=== PATIENT | male | born 1970 | race Caucasian/White ===

== ENCOUNTER 2017-05-30 12:31 | Emergency (ER) | payer OTHER ==
[2017-05-30 13:59] VITALS: BP 110/60
--- NOTE | 2017-05-30 15:37 | UC ---
Skin Complaint HPI - HPI Summary HPI Summary: pt presents with 2 red area on left anterior chest wall. Pt states started like "zits" wounds have become for painful and red ring expanding. Pt states this am picked both and + purulent discharge. Pt thinks may have had fever yesterday. Pt with personal dx of MRSA but significant other with h/o MRSA. Pt tdap UTD pt does have hep C - not on anti-viral Pt's medications reviewed this visit - History of Current Complaint Chief Complaint: UCSkin Time Seen by Provider: 05/30/17 15:10 Stated Complaint: SKIN COMPLAINT Hx Obtained From: Patient, Family/Operations Clerk Onset/Duration: Gradual Onset, Lasting Days Skin Exposure Onset/Duration: Days Ago Timing: Constant Onset Severity: Mild Current Severity: Moderate Pain Intensity: 7 Pain Scale Used: 0-10 Numeric Location: Discrete Aggravating Factor(s): Touch Alleviating Factor(s): Nothing Associated Signs & Symptoms: Positive: Fever. Negative: Nausea, Vomiting - Allergy/Home Medications Allergies/Adverse Reactions: Allergies Allergy/AdvReac Type Severity Reaction Status Date / Time No Known Allergies Allergy Verified 05/30/17 13:52 Review of Systems Constitutional: Fever - tactile Skin: Other - left anterior chest wall wound x 2 All Other Systems Reviewed And Are Negative: Yes PMH/Surg Hx/FS Hx/Imm Hx Previously Healthy: Yes - Surgical History Surgical History: None Surgery Procedure, Year, and Place: [facility] surgery - Social History Occupation: Employed Full-time Lives: With Family Alcohol Use: Occasionally Substance Use Type: None Smoking Status (MU): Heavy Every Day Tobacco Smoker Type: Cigarettes Amount Used/How Often: 20-30 pd Physical Exam Triage Information Reviewed: Yes Appearance: Well-Appearing, No Pain Distress, Well-Nourished Vital Signs: Initial Vital Signs Temp 99 F 05/30/17 13:49 Pulse 60 05/30/17 13:49 Resp 16 05/30/17 13:49 BP 110/60 05/30/17 13:49 Pulse Ox 98 05/30/17 13:49 Eyes: Positive: Conjunctiva Clear ENT: Positive: Hearing grossly normal Neck: Positive: Supple Respiratory: Positive: No respiratory distress, No accessory muscle use Musculoskeletal Exam: Normal Musculoskeletal: Positive: Strength Intact Neurological Exam: Normal Neurological: Positive: Alert Psychological Exam: Normal Skin: Positive: Other - left anterior chest wall -several small inflammed follicles. Pt with 2 area of cellulitis - one 2x3cm with central scab, one 1x1cm with central scab. mild warmth, well demaracted no fluctuance, no odor Course/Dx - Course Course Of Treatment: pt with 2 areas of cellulitis left anterior chest wall. wounds demarcated by me. small purulunt discharge expressed from superior, larger wound - culture taken. covered with abx ointment and bandage. Rx doxy. heat. soaks. return precautions. pt comfortable and in agreement with plan - Diagnoses Provider Diagnoses: cellulitis, likely MRSA wound Discharge - Discharge Plan Condition: Stable Disposition: HOME Prescriptions: DOXYcycline CAP(*) [DOXYcycline 100MG CAP(*)] 100 mg PO BID #20 cap Patient Education Materials: MRSA (Methicillin-Resistant Staphylococcus Aureus ) (ED), Cellulitis (ED), Abscess (ED) Referrals: Jim Eric MD [Primary Care Provider] - Additional Instructions: - Take antibiotics as prescribed until gone - cover wound with sloppy wet, warm cloth 2 times a day for 15 minut - monitor your wound for increased reddness or swelling. please not the red [place] may increase for the first 24-36 hours while the antibiotics start to work - pus from your wound has been sent to the lab for testing, if you need a different antibiotics, you will received a call from a care warehouse team leader - Contact your doctor to schedule a follow-up appointment or return with any questions or concerns
--- NOTE | 2017-06-01 07:06 | UC ---
- Progress Note Progress Note: please call the pt. with the wound culture results + MRSA , cont. with current antibiotics follow up for wound check in 3 days
== END 2017-05-30 15:37 | disposition home or self-care (01) ==
LOC: UCCORT 12:31
DX: L03.313 Cellulitis of chest wall (principal); B95.62 Methicillin resistant Staphylococcus aureus infection as the cause of diseases classified elsewhere; Z86.14 Personal history of Methicillin resistant Staphylococcus aureus infection; F17.210 Nicotine dependence, cigarettes, uncomplicated
CPT/HCPCS: 87070; 87077; 87186; 87205; 87640; 87641; 99212; G0463

== ENCOUNTER 2024-03-28 12:41 | Inpatient (IN) ==
[2024-03-28] MEDS: Lactated Ringers SEPSIS* BAG 2,180 ML IV ONE (13:45)
[2024-03-28 13:46] LABS: ABS Basophils 0.1 10^3/uL (0.0-0.1); ABS Eosinophils 0.2 10^3/uL (0.0-0.5); ABS Lymphocytes 1.6 10^3/uL (1.0-4.8); ABS Monocytes 0.6 10^3/uL (0.0-1.1); ABS Neutrophils 6.9 10^3/uL (1.5-7.6); ABS Nucleated RBC 0.01 10^3/ul; Eosinophil % 2.4 %; Hematocrit 36.3 % (38-53); Hemoglobin 12.4 g/dL (13.2-16.3); Lymphocyte % 17.4 %; Mean Corpuscular Hemoglobin 29.3 pg (27-33); Mean Corpuscular Hgb Conc 34.3 g/dL (31-36); Mean Corpuscular Volume 85.4 fL (80-97); Mean Platelet Volume 6.4 fL (7.5-11.2); Nucleated Red Blood Cells % 0.1 %/100WBC (0.0-0.8); Platelet Count 608 10^3/uL (150-450); Red Blood Count 4.25 10^6/uL (4.06-5.63); White Blood Count 9.5 10^3/uL (3.6-10.2)
[2024-03-28 13:56] LABS: INR 1.22 (0.85-1.14)
[2024-03-28] MEDS ORDERED: Vancomycin 1,000 MG in NS 0.9% 250 ml 250 ML IVPB SCH (14:00)
[2024-03-28 14:10] LABS: High Sens Troponin Baseline 7 pg/mL (<20)
[2024-03-28 14:26] LABS: ALT 54 U/L (7-52); Albumin 2.6 g/dL (3.2-5.2); Albumin/Globulin Ratio 0.7 (1-3); Alkaline Phosphatase 59 U/L (35-149); Anion Gap 5 mmol/L (2-16); Blood Urea Nitrogen 12 mg/dL (6-24); CO2 Carbon Dioxide 29 mmol/L (22-32); Calcium 7.8 mg/dL (8.6-10.3); Chloride 96 mmol/L (101-111); Creatinine, Serum 0.78 mg/dL (0.67-1.17); Globulin 3.9 g/dL (2-4); Glucose 141 mg/dL (70-100); Sodium 130 mmol/L (135-145); Total Bilirubin 0.5 mg/dL (0.2-1.0); Total Protein 6.5 g/dL (6.4-8.9); eGFR CKD-EPI 107.3 (>60)
[2024-03-28] MEDS: Piperacillin/Tazobac 3.375 BAG 3.375 GM/100 ML BAG IV ONE (14:52)
[2024-03-28 14:59] LABS: Venous Bicarbonate HCO3 25.5 mmol/L (24-28)
[2024-03-28 15:27] LABS: High Sensitivity Troponin 1 Hr 6 pg/mL (<20)
[2024-03-28] MEDS: Vancomycin 1,000 MG - ED ONCE IVPB ONE (15:34)
[2024-03-28] MEDS: Iohexol 350 (CONTRAST) 500 ML MDV IV ONE (15:39)
[2024-03-28 15:41] LABS: AST Redraw 49 U/L (13-39); Potassium Redraw 4.5 mmol/L (3.5-5.0)
[2024-03-28 17:47] LABS: Urine Appearance Clear; Urine Bilirubin Negative (Negative); Urine Blood Negative (Negative); Urine Color Colorless; Urine Glucose Negative (Negative); Urine Ketones Negative (Negative); Urine Nitrite Negative (Negative); Urine Protein Negative (Negative); Urine Specific Gravity 1.022 (1.002-1.030); Urine Urobilinogen Negative (Negative); Urine pH 6.5 (5.0-8.0)
[2024-03-28] MEDS ORDERED: Zosyn per Pharmacy NOTE FOLLOW UP SCH (19:00)
[2024-03-28] MEDS ORDERED: Vancomycin per Pharmacy 1 EA NOTE FOLLOW UP SCH (19:00)
[2024-03-28] MEDS ORDERED: Nicotine GUM 4MG FRUIT FLAVOR PO PRN (19:23)
[2024-03-28] MEDS: Lactated Ringers 1000 ml BAG 1,000 ML IV ONE (19:26)
[2024-03-28] MEDS ORDERED: Sulfur Hexaflouride MICROSPHR 25 MG VIAL IV PRN (19:36)
[2024-03-28 20:49] LABS: % Iron Saturation 11 % (15-55); .Transferrin 136 mg/dL (203-362); Iron < 20 ug/dL (50-212); Total Iron Binding Capacity 190 mcg/dL (250-450); Unsaturated Iron Binding 170 ug/dL
[2024-03-28 21:11] LABS: Ferritin 173.4 ng/mL (24-336)
[2024-03-28 21:14] LABS: Folate 7.96 ng/mL (5.90-24.80)
[2024-03-28 21:15] LABS: Vitamin B12 967 pg/mL (180-914)
[2024-03-28 21:37] LABS: Urine Benzodiazepine Screen None Detected (None Detect); Urine Cannabinoids Screen None Detected (None Detect); Urine Opiates Screen Presumptive Positive (None Detect)
[2024-03-28 21:40] LABS: TSH Ultra Thyroid Stim Horm 1.64 mcIU/mL (0.34-5.60)
[2024-03-28 21:42] LABS: Free T4 1.24 ng/dL (0.61-1.12)
[2024-03-28] MEDS ORDERED: ZOSYN 3.375 GM x ONE DOSE over 30 miuntes IV (22:00)
[2024-03-28] MEDS: Vancomycin 1000 MG in NS 0.9% 250 ML IVPB SCH (23:03)
[2024-03-29] MEDS: ZOSYN 3.375 GM x ONE DOSE over 30 miuntes IV (02:14)
[2024-03-29 02:32] LABS: Hepatitis C Antibody Reactive (Negative)
[2024-03-29] MEDS: ZOSYN 3.375 GM Q8H per EXTENDED INFUSION IV SCH (05:05)
[2024-03-29] MEDS: Vancomycin 1000 MG in NS 0.9% 250 ML IVPB SCH (06:11)
[2024-03-29 06:43] LABS: Albumin 2.3 g/dL (3.2-5.2); Albumin/Globulin Ratio 0.7 (1-3); C Reactive Protein 100.83 mg/L (<8.01); Calcium 7.5 mg/dL (8.6-10.3); Creatinine, Serum 0.65 mg/dL (0.67-1.17); Globulin 3.1 g/dL (2-4); Magnesium 1.8 mg/dL (1.9-2.7); Phosphorus 3.7 mg/dL (2.5-5.0); Potassium 5.2 mmol/L (3.5-5.0); Total Bilirubin 0.3 mg/dL (0.2-1.0); Total Protein 5.4 g/dL (6.4-8.9); eGFR CKD-EPI 113.4 (>60)
[2024-03-29 08:23] LABS: Corrected Retic Count 0.8 % (0.5-1.5); Hematocrit 38.7 % (38-53); Hematocrit for Retic CNT 38.7 % (38-53); Hemoglobin 13.1 g/dL (13.2-16.3); Immature Retic Fraction 0.45; Mean Corpuscular Hemoglobin 29.1 pg (27-33); Mean Corpuscular Volume 85.6 fL (80-97); Mean Platelet Volume 5.8 fL (7.5-11.2); Platelet Count 551 10^3/uL (150-450); RBC Retic Count 4.52 10^6/ul (4.06-5.63); Red Blood Count 4.52 10^6/uL (4.06-5.63); Red Cell Distribution Width 14.9 % (12-17); White Blood Count 8.2 10^3/uL (3.6-10.2)
[2024-03-29] MEDS: Magnesium Sulfate 2 gm BAG 2 GM/50 ML BAG IVPB ONE (08:28)
[2024-03-29] MEDS: Methadone ORALSYR CONC LIQ 10 MG/ML PO SCH (09:07)
[2024-03-29 09:16] LABS: ABS Basophils 0.1 10^3/uL (0.0-0.1); ABS Eosinophils 0.2 10^3/uL (0.0-0.5); ABS Lymphocytes 1.3 10^3/uL (1.0-4.8); ABS Monocytes 0.5 10^3/uL (0.0-1.1); Eosinophil % 2.9 %; Lymphocyte % 16.4 %; RBC Morphology Normal (Normal)
[2024-03-29 15:37] LABS: Hepatitis B Surface Antigen Nonreactive (Nonreactive)
[2024-03-29 15:42] LABS: Hepatitis A Ab IgM Negative (Negative)
[2024-03-29] MEDS: Vancomycin Trough Check NOTE FOLLOW UP ONE (15:47)
[2024-03-29 15:54] LABS: Hepatitis B Surface Ab Immune (Immune)
[2024-03-29 17:25] LABS: HIV 4th Generation Nonreactive (Nonreactive)
[2024-03-30] MEDS: DOXYcycline 100 MG in NS 0.9% 250 ml 250 ML IVPB SCH (05:19)
[2024-03-30 10:09] LABS: Hematocrit 38.5 % (38-53); Hemoglobin 12.9 g/dL (13.2-16.3); Mean Corpuscular Hemoglobin 28.8 pg (27-33); Mean Corpuscular Hgb Conc 33.6 g/dL (31-36); Mean Corpuscular Volume 85.7 fL (80-97); Mean Platelet Volume 5.9 fL (7.5-11.2); Platelet Count 594 10^3/uL (150-450); Red Blood Count 4.49 10^6/uL (4.06-5.63); Red Cell Distribution Width 14.8 % (12-17); White Blood Count 7.7 10^3/uL (3.6-10.2)
[2024-03-30] MEDS: Polyethylene Glycol 3350 17 GM PACKET PO PRN (10:25)
[2024-03-30] MEDS: Senna TAB 8.6 mg TAB PO PRN (10:25)
[2024-03-30 10:31] LABS: ALT 40 U/L (7-52); Albumin 2.6 g/dL (3.2-5.2); Albumin/Globulin Ratio 0.7 (1-3); Alkaline Phosphatase 53 U/L (35-149); Anion Gap 5 mmol/L (2-16); Blood Urea Nitrogen 8 mg/dL (6-24); CO2 Carbon Dioxide 27 mmol/L (22-32); Calcium 8.3 mg/dL (8.6-10.3); Chloride 101 mmol/L (101-111); Creatinine, Serum 0.57 mg/dL (0.67-1.17); Globulin 3.9 g/dL (2-4); Glucose 112 mg/dL (70-100); Sodium 133 mmol/L (135-145); Total Bilirubin 0.6 mg/dL (0.2-1.0); Total Protein 6.5 g/dL (6.4-8.9)
[2024-03-30 10:40] LABS: Potassium, Whole Blood 4.9 mmol/L (3.4-4.5)
[2024-03-30 10:53] LABS: ABS Eosinophils 0.1 10^3/uL (0.0-0.5); ABS Neutrophils 6.5 10^3/uL (1.5-7.6); Eosinophil % 1.3 %; Lymphocyte % 13.3 %; RBC Morphology Normal (Normal)
[2024-03-30 11:28] LABS: Magnesium 1.9 mg/dL (1.9-2.7); Potassium Redraw 3.9 mmol/L (3.5-5.0)
[2024-03-30] MEDS: Enoxaparin 40 MG/0.4 ML SYR SUBCUT SCH (17:33)
[2024-03-31 09:29] LABS: Hemoglobin 13.1 g/dL (13.2-16.3); Mean Corpuscular Hemoglobin 28.6 pg (27-33); Mean Corpuscular Hgb Conc 33.6 g/dL (31-36); Mean Corpuscular Volume 85.2 fL (80-97); Mean Platelet Volume 5.6 fL (7.5-11.2); Platelet Count 690 10^3/uL (150-450); Red Blood Count 4.58 10^6/uL (4.06-5.63); White Blood Count 8.1 10^3/uL (3.6-10.2)
[2024-03-31 10:07] LABS: ABS Basophils 0.1 10^3/uL (0.0-0.1); ABS Eosinophils 0.2 10^3/uL (0.0-0.5); ABS Lymphocytes 1.4 10^3/uL (1.0-4.8); ABS Monocytes 0.2 10^3/uL (0.0-1.1); ABS Neutrophils 6.3 10^3/uL (1.5-7.6); ABS Nucleated RBC 0.01 10^3/ul; Eosinophil % 2.2 %; Lymphocyte % 17.4 %; Nucleated Red Blood Cells % 0.1 %/100WBC (0.0-0.8); RBC Morphology Normal (Normal); Smudge Cells Present
[2024-03-31 10:10] LABS: Calcium 8.7 mg/dL (8.6-10.3); Creatinine, Serum 0.58 mg/dL (0.67-1.17); Magnesium 1.8 mg/dL (1.9-2.7); Potassium 4.6 mmol/L (3.5-5.0); eGFR CKD-EPI 117.3 (>60)
[2024-03-31] MEDS: ZOSYN 3.375 GM Q8H per EXTENDED INFUSION IV SCH (15:38)
[2024-04-01 06:09] LABS: Hematocrit 38.2 % (38-53); Hemoglobin 13.1 g/dL (13.2-16.3); Mean Corpuscular Hemoglobin 28.9 pg (27-33); Mean Corpuscular Hgb Conc 34.2 g/dL (31-36); Mean Corpuscular Volume 84.4 fL (80-97); Mean Platelet Volume 5.7 fL (7.5-11.2); Platelet Count 646 10^3/uL (150-450); Red Blood Count 4.52 10^6/uL (4.06-5.63); Red Cell Distribution Width 14.5 % (12-17); White Blood Count 7.4 10^3/uL (3.6-10.2)
[2024-04-01 06:37] LABS: Calcium 8.7 mg/dL (8.6-10.3); Creatinine, Serum 0.65 mg/dL (0.67-1.17); Magnesium 1.8 mg/dL (1.9-2.7); Potassium 4.6 mmol/L (3.5-5.0); eGFR CKD-EPI 113.4 (>60)
[2024-04-01 08:05] LABS: ABS Basophils 0.1 10^3/uL (0.0-0.1); ABS Eosinophils 0.4 10^3/uL (0.0-0.5); ABS Monocytes 0.3 10^3/uL (0.0-1.1); ABS Neutrophils 4.6 10^3/uL (1.5-7.6); ABS Nucleated RBC 0.01 10^3/ul; Eosinophil % 5.7 %; Lymphocyte % 27.1 %; Nucleated Red Blood Cells % 0.1 %/100WBC (0.0-0.8)
[2024-04-01] MEDS: Magnesium Sulfate 2 gm BAG 2 GM/50 ML BAG IVPB ONE (08:07)
[2024-04-01] MEDS: Vancomycin Trough Check NOTE FOLLOW UP ONE (08:08)
[2024-04-01 08:38] LABS: INR 1.11 (0.85-1.14)
[2024-04-01 09:01] LABS: Albumin 2.8 g/dL (3.2-5.2); Albumin/Globulin Ratio 0.8 (1-3); Globulin 3.5 g/dL (2-4); Total Bilirubin 0.4 mg/dL (0.2-1.0); Total Protein 6.3 g/dL (6.4-8.9)
[2024-04-01 13:51] VITALS: BP 103/65
[2024-04-03 18:55] LABS: Hepatitis C Genotype 3 (Undetected)
== END 2024-04-01 15:34 | disposition home or self-care (01) | DRG 720 ==
LOC: ED 12:41 → SUATTDRO 18:05 → EDHOLD 18:05 → MEDTELE 21:42
PROVIDERS: ADMIT Hospitalist; ATTEND Internal Medicine